=== PATIENT | male | born 1955 | race Native Hawaiian/Other Pacific Islander ===

== ENCOUNTER 2016-09-13 11:06 | Day surgery (SDC) | payer OTHER | END 2016-09-13 13:06 | disposition home or self-care (01) | LOC: OR 11:06 | PROC: 08RK3JZ Replacement of Left Lens with Synthetic Substitute, Percutaneous Approach (ICD-10-PCS; principal; 2016-09-13) | DX: H25.22 Age-related cataract, morgagnian type, left eye (principal) | CPT/HCPCS: 66984; V2632 ==

== ENCOUNTER 2016-10-11 10:22 | Day surgery (SDC) | payer OTHER | END 2016-10-11 12:35 | disposition home or self-care (01) | LOC: OR 10:22 | PROC: 08RJ3JZ Replacement of Right Lens with Synthetic Substitute, Percutaneous Approach (ICD-10-PCS; principal; 2016-10-11) | DX: H25.811 Combined forms of age-related cataract, right eye (principal) | CPT/HCPCS: 66984; J0171; V2632 ==